=== PATIENT | female | born 1955 | race African-American/Black ===

== ENCOUNTER 2020-12-11 07:56 | Emergency (ER) | payer OTHER ==
[~2020-12-11] VITALS: Ht 165.1 cm; Wt 200.0 kg
--- NOTE | ~2020-12-11 | EMS ---
[address] [address] EMS Patient Care Report Name: VENKATESH BECKER Room #: DEP [facility]#: [id number] Admission: 12/11/20 Attend Phys: Discharge: 12/11/20 Date of : 59 Report #: [id number] THIS REPORT FOR: //name// Report Transmitted: 12/13/2020 13:16 EMS Care Summary [place], [place]/[facility] Incident [id number] @ 12/11/2020 07:16 Incident Location [facility] Patient VENKATESH BECKER Female, 65 Years 1955 Patient Address [address] [place] [address] Patient History Angina,Congestive Heart Failure (CHF),Chronic Obstructive Pulmonary Disease (COPD),Diabetes,Hypertension (HTN),Morbid Obesity, Patient Allergies No known allergies, Patient Medications Rosuvastatin, Nitroglycerin, Albuterol, Gabapentin, Acetaminophen, Insulin, Aspirin, Chief Complaint shoulder pain Disposition Transported No Lights/[place] Reason Chest Pain (Non-Traumatic) Transported To [facility] Narrative ems met staff and was led to ems. pt found semi fowlers in bed and alert. pt a&ox4 gcs 15 and did not present in apparent distress. pt complained of L sided [address] [address] EMS Patient Care Report Name: VENKATESH BECKER Room #: DEP [facility]#: [id number] Admission: 12/11/20 Attend Phys: Discharge: 12/11/20 Date of : 59 Report #: [id number] cp and shoulder pain x2 weeks. pt stated she was seen at [facility] for the same complaint yesterday 12/10/20. pt requested to be transported back to [facility] because [place] "didnt do anything". pt stated she was told the pain was shoulder related and not cardiac. pt stated the pain is worse now. pt stated the pain worsens with shoulder movement. pt is approx 400lbs. [facility] staff stated pt is non ambulatory. pt was pulled onto ems cot. pt was transferred onto ems cot and was secured in a semi fowlers position without incident. pt was loaded into ambulance. pt was loaded into ambulance. a 12-lead ekg was obtained revealing nsr and was unremarkable. pt was transported non emergent. transport was uneventful and pt rested on ems cot. pt care was transferred to appropriate staff and ems goes back in service. pts backpack was left with pt. Initial Vitals @07:48P: 41,SpO2: 98,NC Suspected: false @07:48P: 41, @07:39P: 64,R: 20,BP: 182/68,Pain: 2/10,GCS: 15,CO: 7,SpO2: 97,Revised Trauma: 12, @07:52P: 62,R: 20,BP: 150/72,GCS: 15,SpO2: 97,Revised Trauma: 12, Assessments @07:25MENTAL:No Abnormalities,SKIN:No Abnormalities,HEENT:Head/Face: No Abnormalities,Eyes: No Abnormalities,Neck/Airway: No Abnormalities,LUNG SOUNDS:General: No Abnormalities,Left Upper: No Abnormalities,Right Upper: No Abnormalities,Left Lower: No Abnormalities,Right Lower: No Abnormalities,ABDOMEN:General: No Abnormalities,Left Upper: No Abnormalities,Right Upper: No Abnormalities,Left Lower: No Abnormalities,Right Lower: No Abnormalities,PELVIS//GI:No Abnormalities,EXTREMITIES:Left Arm: No Abnormalities,Right Arm: No Abnormalities,Left Leg: No Abnormalities,Right Leg: No Abnormalities,PULSE:NEURO:No Abnormalities,@07:42MENTAL:No Abnormalities,SKIN:No Abnormalities,HEENT:Head/Face: No Abnormalities,Eyes: No Abnormalities,Neck/Airway: No Abnormalities,LUNG SOUNDS:General: No Abnormalities,Left Upper: No Abnormalities,Right Upper: No Abnormalities,Left Lower: No Abnormalities,Right Lower: No Abnormalities,ABDOMEN:General: No Abnormalities,Left Upper: No Abnormalities,Right Upper: No Abnormalities,Left Lower: No Abnormalities,Right Lower: No Abnormalities,PELVIS//GI:No Abnormalities,EXTREMITIES:Left Arm: No Abnormalities,Right Arm: No Abnormalities,Left Leg: No Abnormalities,Right Leg: No Abnormalities,PULSE:NEURO:No Abnormalities, Impression Extremity Pain Procedures @07:25ALS AssessmentResponse: UnchangedSucceeded@07:4812-Lead ECGResponse: UnchangedSucceeded@07:27Oxygen FlowRate: 4 Device: Nasal Cannula (NC) Response: UnchangedSucceeded [address] [address] EMS Patient Care Report Name: VENKATESH BECKER Room #: [facility]#: [id number] Admission: 12/11/20 Attend Phys: Discharge: 12/11/20 Date of : 59 Report #: [id number] Timeline 07:13,Call Received 07:13,Dispatch Notified 07:16,Dispatched 07:17,En Route 07:24,On Scene 07:25,At Patient 07:25,ALS Assessment,Response: UnchangedSucceeded, 07:27,Oxygen FlowRate: 4 Device: Nasal Cannula (NC) Response: UnchangedSucceeded, 07:39,BP: 182/68 M,PULSE: 64,RR: 20 R,SPO2: 97 Ox,ETCO2: ,BG: ,PAIN: 2,GCS: 15, 07:40,Depart Scene 07:48,12-Lead ECG,Response: UnchangedSucceeded, 07:48,BP: / M,PULSE: 41,RR: R,SPO2: 98 Ox,ETCO2: ,BG: ,PAIN: ,GCS: , 07:48,BP: / M,PULSE: 41,RR: R,SPO2: Ox,ETCO2: ,BG: ,PAIN: ,GCS: , 07:52,BP: 150/72 M,PULSE: 62,RR: 20 R,SPO2: 97 Ox,ETCO2: ,BG: ,PAIN: ,GCS: 15, 07:53,At Destination 08:04,Call Closed Disclaimer v1.1 Copyright 2020 [employer] This EMS Care Summary contains data elements from the applicable legal record (which may be displayed differently). It is designed to provide pertinent information for the following purposes: continuity of care, clinical quality, and state data reporting. The complete legal record is available to ED staff and administrators of the receiving hospital in [employer]'s Patient Tracker. All data is provided "as is."
[~2020-12-11 07:56] MED LIST: ALLOPURINOL 30300 M1 PO; AMBIEN 5 MG TABL5 M1 PO; AMLODIPINE BESY10 MG PO; ASA5UEC; ATROVENT30 ML NS; AZITHROMYCIN 2250 MG PO; COLCHICINE 0.60.6 M1 PO; COMBIVENT INH; CRESTOR20 MG PO; CYCLOBENZAPRINE10 MG PO; CYMBALTA60 MG PO; DIOVAN320 MG PO; DUONEB 2.5-0.5 M3 ML IH; FLONASE 0.05%50 MCG NS; HUMALOG100 UNIT/1 SQ; HYDROCHLOROTHIA25 M2 GT; K-DUR10 ME1 PO; LANTUS SC; LASIX 20 MG TAB20 MG PO; LYRICA 50 MG50 MG PO; MUCINEX600 MG PO; NITROSTAT0.4 MG SL; PERCODAN TABLE1 EACH PO; TRIAMTERENE-HC1 EAC1 PO
[2020-12-11] MEDS ORDERED: ASPERCREME1 EACH TOP (08:06)
[2020-12-11] MEDS ORDERED: CETIRIZINE HCL5 MG PO (08:07)
[2020-12-11] MEDS ORDERED: 3-DAY VAGINAL C21 GM TOP (08:07)
[2020-12-11] MEDS ORDERED: ARTHRITIS PAIN100 GM TOP (08:08)
[2020-12-11] MEDS ORDERED: IRON325 M1 PO (08:09)
[2020-12-11] MEDS ORDERED: DULCOLAX STOOL100 M1 PO (08:09)
[2020-12-11] MEDS ORDERED: NYSTATIN1 EA10 TOP (08:11)
[2020-12-11] MEDS ORDERED: PROTONIX40 M4 PO (08:11)
[2020-12-11] MEDS ORDERED: PERCOCET 10-321 EAC1 PO (08:12)
[2020-12-11] MEDS ORDERED: TOPROL XL100 MG PO (08:14)
[2020-12-11] MEDS ORDERED: SENNA PLUS TAB1 EACH PO (08:14)
[2020-12-11] MEDS ORDERED: KAYEXALATE15 GM/601 PO (08:16)
[2020-12-11 08:20] LABS: ABSOLUTE NEUTROPHILS 4.4 thou/uL (1.4-8.2); EOSINOPHILS 1.1 % (0.0-3.0); HEMATOCRIT 31.6 % (37.0-47.0); HEMOGLOBIN 9.6 gm/dL (12.0-15.0); LYMPHOCYTES 11.6 % (24.0-44.0); MCH 26.5 pg (26.0-34.0); MCHC 30.2 g/dL (28.0-37.0); MCV 87.7 fL (80.0-100.0); MONOCYTES 7.9 % (1.0-8.0); PLATELET COUNT 181 thou/uL (150-400); POLYS 78.4 % (36.0-66.0); RDW 16.3 % (10.5-14.5); WBC 5.6 thou/uL (4.0-11.0)
--- NOTE | 2020-12-11 08:27 | EKG ---
[place] [address] [facility] [employer] [place] [address] ELECTROCARDIOGRAM REPORT Name: VENKATESH BECKER Room #: [facility].#: [id number] Admission: Attend Phys: Discharge: Date of : 59 Report #: [id number] [facility] ED Test Date: 2020-12-11 Test Time: 08:00:28 Pat Name: VENKATESH BECKER Department: Room: Gender: F Carpenter Rough: BRYAN : 1955 Requested By: Juan Thompson Order Number: [id number] MD: Orion Cohen Measurements Intervals [place] Rate: 64 P: AL: QRS: -2 QRSD: 129 T: 73 QT: 408 QTc: 421 Interpretive Statements Atrial fibrillation Right ventricular conduction delay Baseline wander in lead(s) V1 Compared to ECG 10/26/2009 17:29:23 Atrial fibrillation has replaced sinus rhythm Electronically Signed On 12-11-2020 8:27:45 CDT by Orion Cohen [email or web address] <ELECTRONICALLY SIGNED> By: Orion Cohen MD, [facility] 12/11/20 0827 08 0800 Orion Cohen MD, FACC /EPI
[2020-12-11 08:58] LABS: CALCIUM 9.2 mg/dL (8.5-10.1); CREATININE 1.9 mg/dL (0.6-1.0)
[2020-12-11 09:08] LABS: ALBUMIN 2.9 g/dL (3.4-5.0); TOTAL BILIRUBIN 0.4 mg/dL (0.2-1.0); TOTAL PROTEIN 7.6 g/dL (6.4-8.2)
[2020-12-11 11:02] LABS: POTASSIUM 5.4 mmol/L (3.5-5.1)
[2020-12-11 11:19] VITALS: BP 156/55
== END 2020-12-11 11:20 ==
LOC: ER 07:56
PROVIDERS: Emergency Medicine
DX: M25.512 Pain in left shoulder (principal); R07.89 Other chest pain; Z20.822 Contact with and (suspected) exposure to COVID-19; Z88.6 Allergy status to analgesic agent; Z88.5 Allergy status to narcotic agent; Z88.8 Allergy status to other drugs, medicaments and biological substances; Z91.018 Allergy to other foods; Z88.2 Allergy status to sulfonamides